=== PATIENT | female | born 2005 | race Hispanic/Latino ===

== ENCOUNTER 2024-05-10 17:57 | Emergency (ER) | payer OTHER ==
[~2024-05-10] VITALS: Ht 160 cm; Wt 59.0 kg
[2024-05-10] MEDS: LIDOCAINE HCL 1% 20 ML VIAL INJ STA (19:58)
[2024-05-10] MEDS: teTANUS/diphthERIA TOXOID [ADULT] 0.5 ML VIAL IM ONE (20:18)
[2024-05-10] MEDS: acetaMINOPHEN 500 MG TABLET PO ONE (20:20)
--- NOTE | 2024-05-10 20:26 | ERN ---
General Chief Complaint: Finger Injury Stated Complaint: UNIDENTIFIED OBJECT CAUGHT IN HER LEFT FINGER Time Seen by MD: 17:59 Time Seen by Midlevel: 17:59 Source: patient History of Present Illness Initial Comments 19-year-old female presents to the emergency department due to an foreign object under the nail of her left pinky. Patient reports she exit any brought her hand down to close to the wall and got a piece of wood under her nail. Denies any further injuries. Denies significant past medical history. Allergies: Coded Allergies: No Known Allergies (Unverified Allergy, Unknown, 05/10/24) Past Medical History Past Medical History: No Pertinent History Past Surgical History: None Female( History) LMP: May 06, 2024 ROS Dictation Constitutional: Negative for fever,chills, and weight loss Eyes: Negative for injury, pain,redness, and discharge ENT: Negative for injury,pain or swelling Cardiovascular: Negative for chest pain, palpitations, and edema Respiratory: Negative for shortness of breath, cough, and wheezing, Abdomen/GI: Negative for abdominal pain, nausea, vomiting, diarrhea, and constipation Back: Negative for injury and pain : Negative for painful urination, bleeding or discharge MS/Extremity: Negative for injury and deformity Skin: Positive for foreign object under the left pinky nail Negative for rash, and discoloration Neuro: Negative for headache, weakness, numbness, tingling, and seizure Psych: Negative for suicide ideation, homicidal ideation, and hallucinations Physical Exam Physical Exam Dictation General: awake, alert, no acute distress Head/Face: Normocephalic, atraumatic Eyes: PERRL, EOMI, normal conjuctiva Neck: Supple, normal range of motion Cardiovascular: RRR, normal S1/S2 Respiratory: CTAB, no respiratory distress, Skin: Warm, dry, normal turgor, no rash. Left hand 5th digit to foreign objects noted under the nail MS/Extremity: Pulses equal, no cyanosis, neurovascular intact, FROM Neuro: COAx4, GCS 15, strength 5/5, CN 2-12 intact, normal cerebellar exam, normal gait Psych: Normal behavior, mood, and affect normal MDM MDM: Differential diagnosis: Rationale: 19-year-old female presents to the emergency department due to an foreign object under the nail of her left pinky. Patient reports she exit any brought her hand down to close to the wall and got a piece of wood under her nail. Denies any further injuries. Denies significant past medical history. Left hand 5th digit foreign object noted under the nail. Foreign object removed with no complications. Two pieces of foot removed from under the nail. Patient was educated on findings and diagnosis. Advised to follow up with PCP. Return to the emergency department if any worsening symptoms. Patient verbalized understanding. Patient stable for discharge. There are no social concerns with this patient. I independently interpreted the test that were performed, results were reviewed by me and considered findings on radiology if ordered. Medical management and examination interpretation discussions were had by me with other qualified healthcare professionals as indicated for the patient's care. ED Course Orders Procedure Category Date Status Time Lidocaine Hcl 1% 20ml PHA 05/10/24 Complete Vial (Lidocaine Hc 18:33 Acetaminophen 500mg PHA 05/10/24 Complete Tab (Tylenol 500mg T 20:00 Tetanus,Diphtheria PHA 05/10/24 Complete Tox [Adult] (Diphther 20:30 Current Medications Medications (Trade) Dose Ordered Sig/Sarah Route PRN Reason Start Time Stop Time Status Last Admin Dose Admin Acetaminophen (TYLenol 500MG TAB) 1,000 mg ONCE ONCE PO 05/10/24 20:00 05/10/24 20:01 DC 05/10/24 20:20 Lidocaine HCl (Lidocaine HCl 1% 20ml Vial) 10 ml ONCE STAT INJ 05/10/24 18:33 05/10/24 18:46 DC 05/10/24 19:58 Tetanus/ Diphtheria Toxoids Adsorbed (DiphthERIA-teTANUS TOXOID [ADULT]/ DECAVAC) 0.5 ml ONCE ONCE IM 05/10/24 20:30 05/10/24 20:31 DC 05/10/24 20:18 Vital Signs Date Time Temp Pulse Resp B/P (MAP) Pulse Ox O2 Delivery O2 Flow Rate FiO2 05/10/24 20:40 97.9 78 18 119/65 98 Room Air* 0 21 05/10/24 18:45 97.5 77 20 127/77 99 0 DX & DISP Disposition: Discharge Departure Impression: Primary Impression: Foreign body of finger of left hand Additional Impression: Nail bed injury Condition: Stable Additional Instructions: Discharge home. Rest. Follow up with primary care in 24 hours. Return to the ER for any acute changes or worsening symptoms. If any medications were prescribed take as directed. Okay to continue home medications unless otherwise discussed during your visit in the emergency room today. Patient was also advised to follow-up with primary care physician in 1 to 2 days for continued monitoring. Referrals: SELF,REFERRAL (PCP) I performed the substantive portion of the visit. I have reviewed and personally made and approve the management plan that is documented in the notes by myself or the JOSE. I acknowledge full responsibility for the patient's management plan. TY MARTIN May 10, 2024 20:26
[2024-05-10 20:40] VITALS: BP 119/65; PULSE 78; RESP 18; TEMP 97.9; O2SAT 98
== END 2024-05-10 20:40 | disposition home or self-care (01) ==
LOC: EDH 17:57
DX: S60.457A Superficial foreign body of left little finger, initial encounter (principal); S69.82XA Other specified injuries of left wrist, hand and finger(s), initial encounter; X58.XXXA Exposure to other specified factors, initial encounter; Y93.89 Activity, other specified; Y92.89 Other specified places as the place of occurrence of the external cause; Y99.8 Other external cause status
CPT/HCPCS: 90471; 90714; 99283